=== PATIENT | male | born 1955 | race Caucasian/White ===

== ENCOUNTER 2025-01-02 18:50 | Inpatient (IN) | payer OTHER ==
[2025-01-02 19:25] LABS: #Basophils 0.04 10x3/uL (0.0-0.2); #Eosinophils 0.30 10x3/uL (0.0-0.7); #Monocytes 0.93 10x3/uL (0.11-0.59); #Neutrophils 7.51 10x3/uL (1.40-6.50); %Basophils 0.3 % (0.0-1.0); %Eosinophils 2.6 % (0.0-10.0); %Lymphocytes 23.7 % (21.0-51.0); %Monocytes 8.0 % (0.0-10.0); %Neutrophils 65.1 % (42.0-75.0); Hematocrit 43.2 % (42.0-52.0); Hemoglobin 14.5 g/dL (14.0-18.0); Mean Corpuscular Hemoglobin 27.7 pg (27.0-31.0); Mean Corpuscular Volume 82.6 fL (78.0-98.0); Platelet Count 348 10x3/uL (130-400); Red Blood Cell (RBC) Count 5.23 mill/uL (4.70-6.10); White Blood Cell (WBC) Count 11.56 10x3/uL (4.8-10.8)
[2025-01-02 19:41] LABS: ALT (SGPT) 21 U/L (Less than 45); AST (SGOT) 17 U/L (11-34); Albumin 4.2 g/dL (3.1-4.5); Alkaline Phosphatase 106 U/L (40-110); Anion Gap 14 mmol/L (10-20); BUN (Urea Nitrogen) 16 mg/dL (8.4-25.7); Bilirubin, Total 0.3 mg/dL (0.3-1.2); Calc. Creatinine Clearance 0 mL/min (70-130); Calcium 9.1 mg/dL (7.8-10.44); Carbon Dioxide 23 mmol/L (23-31); Chloride 95 mmol/L (98-107); Globulin 3.1 g/dL (2.4-3.5); Glucose 128 mg/dL (80-115); Potassium 4.2 mmol/L (3.5-5.1); Sodium 128 mmol/L (136-145)
[2025-01-02] MEDS ORDERED: Ondansetron PF 4 MG/2 ML Vial ONE (19:57)
[2025-01-03] MEDS ORDERED: Ondansetron PF 4 MG/2 ML Vial IVP PRN (01:00)
[2025-01-03] MEDS ORDERED: Acetaminophen 325 MG TAB PO PRN (01:00)
[2025-01-03] MEDS ORDERED: Acetaminophen 500 MG TAB PO PRN (01:35)
[2025-01-03] MEDS ORDERED: Phenytoin 100 MG (4 mL) UDCUP PO SCH (02:00)
[2025-01-03] MEDS ORDERED: Glucagon 1 MG/ML KIT IM PRN (02:01)
[2025-01-03] MEDS ORDERED: Dextrose 50% Abboject 50 ML SYRINGE SLOW IVP PRN (02:01)
[2025-01-03 02:37] VITALS: BMI 34.2
[2025-01-03] MEDS: Phenytoin Extended Release 100 MG CAP PO SCH ×2 (03:28→20:03)
[2025-01-03 05:47] LABS: #Basophils 0.05 10x3/uL (0.0-0.2); #Eosinophils 0.29 10x3/uL (0.0-0.7); #Monocytes 0.91 10x3/uL (0.11-0.59); #Neutrophils 6.58 10x3/uL (1.40-6.50); %Basophils 0.5 % (0.0-1.0); %Eosinophils 2.9 % (0.0-10.0); %Lymphocytes 20.9 % (21.0-51.0); %Monocytes 9.2 % (0.0-10.0); %Neutrophils 66.2 % (42.0-75.0); Hematocrit 39.1 % (42.0-52.0); Hemoglobin 13.0 g/dL (14.0-18.0); Mean Corpuscular Hemoglobin 28.2 pg (27.0-31.0); Mean Corpuscular Volume 84.8 fL (78.0-98.0); Platelet Count 316 10x3/uL (130-400); Red Blood Cell (RBC) Count 4.61 mill/uL (4.70-6.10); White Blood Cell (WBC) Count 9.94 10x3/uL (4.8-10.8)
[2025-01-03 06:01] LABS: Anion Gap 15 mmol/L (10-20); BUN (Urea Nitrogen) 18 mg/dL (8.4-25.7); Calc. Creatinine Clearance 133 mL/min (70-130); Calcium 8.5 mg/dL (7.8-10.44); Carbon Dioxide 24 mmol/L (23-31); Chloride 96 mmol/L (98-107); Glucose 138 mg/dL (80-115); Potassium 4.0 mmol/L (3.5-5.1); Sodium 131 mmol/L (136-145)
[2025-01-03] MEDS: Lisinopril 20 MG TAB PO SCH (09:28)
[2025-01-03] MEDS: Enoxaparin 40 MG (0.4 mL) SYRINGE SC SCH (09:28)
[2025-01-03] MEDS: Ketorolac Tromethamine 30 MG (1 mL) VIAL IVP PRN (09:29)
[2025-01-03] MEDS: Furosemide 20 MG TAB PO SCH (09:29)
[2025-01-03] MEDS: Gabapentin 300 MG CAP PO SCH (15:49)
[2025-01-03] MEDS: Famotidine 20 MG TAB PO SCH (20:03)
[2025-01-03] MEDS: Dexamethasone 4 MG TAB PO SCH (20:03)
[2025-01-04 06:20] LABS: Anion Gap 15 mmol/L (10-20); BUN (Urea Nitrogen) 16 mg/dL (8.4-25.7); Calc. Creatinine Clearance 140 mL/min (70-130); Calcium 8.9 mg/dL (7.8-10.44); Carbon Dioxide 24 mmol/L (23-31); Chloride 96 mmol/L (98-107); Glucose 169 mg/dL (80-115); Potassium 4.4 mmol/L (3.5-5.1); Sodium 131 mmol/L (136-145)
[2025-01-04] MEDS: Methocarbamol 500 MG TAB PO PRN (08:55)
[2025-01-04] MEDS: Insulin Glargine 30 UNITS/0.3 ML VIAL SC SCH (20:33)
[2025-01-05 06:34] LABS: Anion Gap 14 mmol/L (10-20); BUN (Urea Nitrogen) 14 mg/dL (8.4-25.7); Calc. Creatinine Clearance 146 mL/min (70-130); Calcium 8.7 mg/dL (7.8-10.44); Carbon Dioxide 24 mmol/L (23-31); Chloride 98 mmol/L (98-107); Glucose 181 mg/dL (80-115); Potassium 4.2 mmol/L (3.5-5.1); Sodium 132 mmol/L (136-145)
[2025-01-05] MEDS: Dexamethasone 1 MG TAB PO SCH (21:02)
[2025-01-06 00:48] VITALS: TEMP 98.1
[2025-01-06 06:57] LABS: Anion Gap 14 mmol/L (10-20); BUN (Urea Nitrogen) 16 mg/dL (8.4-25.7); Calc. Creatinine Clearance 148 mL/min (70-130); Calcium 8.6 mg/dL (7.8-10.44); Carbon Dioxide 25 mmol/L (23-31); Chloride 99 mmol/L (98-107); Glucose 163 mg/dL (80-115); Potassium 4.5 mmol/L (3.5-5.1); Sodium 133 mmol/L (136-145)
[2025-01-06 09:39] VITALS: BP 173/81
[2025-01-07] MEDS ORDERED: Dexamethasone 1 MG TAB PO SCH (20:00)
[2025-01-09] MEDS ORDERED: Dexamethasone 1 MG TAB PO SCH (20:00)
== END 2025-01-06 16:20 | DRG 552 ==
LOC: EEVIPCON 18:50 → ERS 18:50 → T4-A 01-03 00:41 → OBSVTOIN 01-03 15:40
PROVIDERS: ADMIT Internal Medicine; ATTEND Family Medicine
PROC: 5A09357 Assistance with Respiratory Ventilation, Less than 24 Consecutive Hours, Continuous Positive Airway Pressure (ICD-10-PCS; principal; 2025-01-06)
DX: M48.061 Spinal stenosis, lumbar region without neurogenic claudication (principal); E87.1 Hypo-osmolality and hyponatremia; I25.10 Atherosclerotic heart disease of native coronary artery without angina pectoris; I50.9 Heart failure, unspecified; E11.9 Type 2 diabetes mellitus without complications; M19.90 Unspecified osteoarthritis, unspecified site; G47.33 Obstructive sleep apnea (adult) (pediatric); I11.0 Hypertensive heart disease with heart failure; J44.9 Chronic obstructive pulmonary disease, unspecified; G40.909 Epilepsy, unspecified, not intractable, without status epilepticus; N40.0 Benign prostatic hyperplasia without lower urinary tract symptoms; Z79.899 Other long term (current) drug therapy
CPT/HCPCS: 36415; 36416; 72128; 72131; 72146; 72158; 80048; 80053; 85025; 86141; 93005; 94660; 96372; 96374; 96375; 96376; G0378; J1100; J1650; J1815; J1885; J8540